=== PATIENT | male | born 1960 | race Caucasian/White ===

== ENCOUNTER 2016-02-23 12:35 | Emergency (ER) | payer SELFPAY ==
[~2016-02-23] VITALS: Ht 185.4 cm; Wt 85.0 kg
[~2016-02-23 12:35] MED LIST: BACT800T5 PO; FLAG500T PO
[2016-02-23 12:39] VITALS: BP 184/96; PULSE 66; RESP 18; TEMP 97.5; O2SAT 98
[2016-02-23] MEDS ORDERED: METR-1 PO ×2 (12:54→13:04)
--- NOTE | 2016-02-23 12:58 | PD ---
HPI Chief Complaint: Abdominal Pain Time Seen by Provider: 12:43 Travel History International Travel<30 days: No Contact w/Intl Traveler<30days: No Traveled to known affect area: No History of Present Illness HPI 55-year-old male with history of diverticulitis here with complaint of left lower quadrant, suprapubic abdominal pain for the last 3 days. States it feels similar to his history of diverticulitis. No nausea vomiting. No bloody stools.no fevers or chills. PFSH Past Medical History Diminished Hearing: No Diverticulitis: Yes Gastrointestinal Disorders: Yes (intermittent abd pain) Immunizations Current: Yes Tetanus Vaccination: > 5 Years Influenza Vaccination: No Social History Alcohol Use: Yes (socially) Tobacco Use: Yes (1ppd) Substance Use: No (denies) Allergies-Medications (Allergen,Severity, Reaction): Coded Allergies: No Known Allergies (Unverified , 02/23/16) Reported Meds & Prescriptions Reported Meds & Active Scripts Active Reported Flagyl (Metronidazole) 500 Mg Tab 500 Mg PO BID Review of Systems Except as stated in HPI: all other systems reviewed are Neg Physical Exam Narrative GENERAL: well-appearing male in no acute distress SKIN: Warm and dry. HEAD: Normocephalic. EYES:No scleral icterus. No injection or drainage. ENT: Mucous membranes pink and moist. NECK: Tsupple CARDIOVASCULAR: Regular rate and rhythm. RESPIRATORY: No accessory muscle use. GASTROINTESTINAL: Abdomen soft, mild suprapubic tenderness to palpation without rebound or guarding, nondistended. RECTAL: no tenderness to palpation of the prostate MUSCULOSKELETAL: normal gait NEUROLOGICAL: Awake and alert. Normal speech. PSYCHIATRIC: Appropriate mood and affect; insight and judgment normal. Data Data Last Documented VS Vital Signs Date Time Temp Pulse Resp B/P Pulse Ox O2 Delivery O2 Flow Rate FiO2 02/23/16 12:39 97.5 66 18 184/96 98 Room Air MDM Medical Decision Making Medical Screen Exam Complete: Yes Emergency Medical Condition: Yes Medical Record Reviewed: Yes Differential Diagnosis 55-year-old male with history of diverticulitis here with 3 days of suprapubic and left lower quadrant abdominal pain. Differential includes diverticulitis, prostatitis, UTI. Abdominal examination benign making peritoneal pathology such as abscess or perforation unlikely. Narrative Course Patient will be treated empirically and discharged home to follow up with outpatient primary care, GI. Diagnosis Primary Impression: Diverticulitis Qualified Code: K57.20 - Diverticulitis of large intestine with perforation and abscess without bleeding Referrals: Deepak Long MD call for appointment [facility] call for appointment [facility] call for appointment Additional Instructions: Finish antibiotics as prescribed. Re-enroll in patient assistance and follow up with outpatient GI for colonoscopy. Med/Other Pt SpecificInfo: Prescription(s) given Scripts Tramadol (Ultram)50 Mg Tab50 Mg PO Q4H PRN (PAIN) #10 TAB Ref 0 Prov:Chrissie Montoya MD 02/23/16 Metronidazole (Flagyl)500 Mg [id number] Mg PO TID 10 Days Ref 0 Prov:Chrissie Montoya MD 02/23/16 Ciprofloxacin 750 Mg [id number] Mg PO BID 10 Days Ref 0 Prov:Chrissie Montoya MD 02/23/16 Disposition: 01 DISCHARGE HOME Condition: Stable Chrissie Montoya MD Feb 23, 2016 12:58
[2016-02-23] MEDS ORDERED: CIPR750T2 PO (13:04)
[2016-02-23] MEDS ORDERED: ULTR50TA5 PO (13:04)
== END 2016-02-23 13:43 | disposition home or self-care (01) ==
LOC: NEPE 12:35
DX: K57.20 Diverticulitis of large intestine with perforation and abscess without bleeding (principal)
CPT/HCPCS: 99283

== ENCOUNTER 2017-07-31 10:32 | Observation (INO) | payer SELFPAY ==
[~2017-07-31] VITALS: Ht 185.4 cm; Wt 82.0 kg
[~2017-07-31 10:32] MED LIST changes: -BACT800T5 PO; +CIPR750T2 PO; -FLAG500T PO; +METR-1 PO; +TRAM50 PO
[2017-07-31 10:36] VITALS: BP 190/93; PULSE 65; RESP 16; TEMP 98.7; O2SAT 100
[2017-07-31] MEDS ORDERED: MORPHINE SULFATE 4 MG/ML INJ IV PUSH ONE (10:45)
[2017-07-31] MEDS ORDERED: ASPIRIN 81 MG CHEW TAB PO ONE (10:45)
[2017-07-31] MEDS ORDERED: SODIUM CHLORIDE 0.9% FLUSH 10 ML FLUSH IVF PRN (10:45)
[2017-07-31 10:51] VITALS: BP 182/92; PULSE 58; RESP 16; O2SAT 99
--- NOTE | 2017-07-31 10:58 | PD ---
HPI . throat pain Chief Complaint: Chest Pain Time Seen by Provider: 10:44 Travel History International Travel<30 days: No Contact w/Intl Traveler<30days: No Traveled to known affect area: No History of Present Illness HPI Patient presents with chief complaint of throat pain. Onset was last night. Comes and goes. He rates the pain at 2/10. Associated symptoms include nausea , dizziness, shortness of breath, shaking and feeling agitated. He has not noted any modifying factors. Specifically, no increased discomfort with activity. Risk factors for coronary artery disease include tobacco abuse. No known history of hypertension. He denies drug abuse. [facility] Past Medical History Diminished Hearing: No Diverticulitis: Yes Gastrointestinal Disorders: Yes (intermittent abd pain) Immunizations Current: Yes Past Surgical History Surgical History: No Previous Surgery Social History Alcohol Use: Yes (socially) Tobacco Use: Yes (1ppd) Substance Use: No (denies) Allergies-Medications (Allergen,Severity, Reaction): Coded Allergies: No Known Allergies (Unverified Adverse Reaction, Unknown, 07/31/17) Reported Meds & Prescriptions Reported Meds & Active Scripts Active No Active Prescriptions or Reported Medications Review of Systems Except as stated in HPI: all other systems reviewed are Neg General / Constitutional: No: Fever, Chills HENT: Positive: Lightheadedness Cardiovascular: Positive: Chest Pain or Discomfort Respiratory: Positive: Shortness of Breath Gastrointestinal: Positive: Nausea Neurologic: Positive: Tremor Psychiatric: Positive: Other (Agitation) Physical Exam Narrative GENERAL: Awake and alert and in no acute distress. SKIN: warm/dry. HEAD: Normocephalic. Atraumatic. EYES: Pupils equal and round. Extraocular movements are intact. ENT: Mucous membranes pink and moist. NECK: Supple. Full range of motion without pain.. CARDIOVASCULAR: Regular rate and rhythm. Heart sounds normal. RESPIRATORY: No accessory muscle use. Clear to auscultation. Breath sounds equal bilaterally. He does have some chest wall tenderness. GASTROINTESTINAL: Abdomen soft. Nontender. Bowel sounds present. Nondistended. MUSCULOSKELETAL: No obvious deformities. Normal muscle tone. NEUROLOGICAL: Awake and alert. No obvious cranial nerve deficits. Motor grossly within normal limits. Normal speech. PSYCHIATRIC: Appropriate mood and affect; insight and judgment normal. Data Data Last Documented VS Vital Signs Date Time Temp Pulse Resp B/P (MAP) Pulse Ox O2 Delivery O2 Flow Rate FiO2 07/31/17 10:51 58 16 182/92 (122) 99 Room Air 07/31/17 10:36 98.7 Orders Orders Electrocardiogram (07/31/17 10:45) Basic Metabolic Panel (Bmp) (07/31/17 10:45) Complete Blood Count With Diff (07/31/17 10:45) Magnesium (Mg) (07/31/17 10:45) Prothrombin Time / Inr (Pt) (07/31/17 10:45) Act Partial Throm Time (Ptt) (07/31/17 10:45) Troponin I (07/31/17 10:45) Ecg Monitoring (07/31/17 10:45) Iv Access Insert/Monitor (07/31/17 10:45) Oximetry (07/31/17 10:45) Aspirin Chew (Aspirin Chew) (07/31/17 10:45) Morphine Inj (Morphine Inj) (07/31/17 10:45) Sodium Chloride 0.9% Flush (Ns Flush) (07/31/17 10:45) Nitroglycerin Sl (Nitrostat Sl) (07/31/17 10:45) Chest, Pa & Lat (07/31/17 10:45) Labs Laboratory Tests Test 07/31/17 10:55 White Blood Count 4.4 TH/MM3 Red Blood Count 5.55 MIL/MM3 Hemoglobin 17.9 GM/DL Hematocrit 52.0 % Mean Corpuscular Volume 93.8 FL Mean Corpuscular Hemoglobin 32.3 PG Mean Corpuscular Hemoglobin Concent 34.4 % Red Cell Distribution Width 13.2 % Platelet Count 208 TH/MM3 Mean Platelet Volume 8.8 FL Neutrophils (%) (Auto) 59.9 % Lymphocytes (%) (Auto) 27.1 % Monocytes (%) (Auto) 8.5 % Eosinophils (%) (Auto) 2.8 % Basophils (%) (Auto) 1.7 % Neutrophils # (Auto) 2.7 TH/MM3 Lymphocytes # (Auto) 1.2 TH/MM3 Monocytes # (Auto) 0.4 TH/MM3 Eosinophils # (Auto) 0.1 TH/MM3 Basophils # (Auto) 0.1 TH/MM3 CBC Comment DIFF FINAL Differential Comment Prothrombin Time 10.6 SEC Prothromb Time International Ratio 1.0 RATIO Activated Partial Thromboplast Time 25.1 SEC Blood Urea Nitrogen 12 MG/DL Creatinine 1.15 MG/DL Random Glucose 119 MG/DL Calcium Level 9.0 MG/DL Magnesium Level 2.4 MG/DL Sodium Level 139 MEQ/L Potassium Level 4.3 MEQ/L Chloride Level 106 MEQ/L Carbon Dioxide Level 27.2 MEQ/L Anion Gap 6 MEQ/L Estimat Glomerular Filtration Rate 66 ML/MIN Troponin I LESS THAN 0.02 NG/ML MDM Medical Decision Making Medical Screen Exam Complete: Yes Emergency Medical Condition: Yes Medical Record Reviewed: Yes (Past medical history of diverticulitis) Interpretation(s) EKG shows a sinus rhythm with no acute ischemic changes Differential Diagnosis Differential diagnosis of chest pain includes but is not limited to musculoskeletal pain, pulmonary embolism, acute coronary syndrome, pneumonia, pleurisy Narrative Course This patient presents complaining with throat discomfort. Cardiac workup is in process. He has been given aspirin and will be given sublingual nitroglycerin. Further evaluation and treatment will be dependent upon the results of his workup as well as his response to treatment. CBC & BMP Diagram 07/31/17 10:55 Calcium Level 9.0, Magnesium Level 2.4 trop < 0.02 Last Impressions Chest X-Ray 07/31/17 1045 Signed Impressions: CONCLUSION: No acute cardiopulmonary abnormality is identified. He will be placed in the chest pain center for further evaluation. Diagnosis Primary Impression: Chest pain Qualified Codes: R07.9 - Chest pain, unspecified Admitting Information Admitting Physician Requests: Observation Scripts No Active Prescriptions or Reported Meds Condition: Stable Shavonne Meek MD Jul 31, 2017 10:58
[2017-07-31 11:14] LABS: AUTOMATED NEUTROPHIL # 2.7 TH/MM3 (1.8-7.7); BASOPHIL # 0.1 TH/MM3 (0-0.2); BASOPHIL % 1.7 % (0.0-2.0); EOSINOPHIL # 0.1 TH/MM3 (0-0.4); EOSINOPHIL % 2.8 % (0.0-4.0); HEMOGLOBIN 17.9 GM/DL (13.0-17.0); LYMPH % 27.1 % (9.0-44.0); LYMPHOCYTE # 1.2 TH/MM3 (1.0-4.8); MEAN CELL VOLUME 93.8 FL (80.0-100.0); MEAN CORPUSCULAR HEMOGLOBIN 32.3 PG (27.0-34.0); MEAN CORPUSCULAR HGB CONC 34.4 % (32.0-36.0); MEAN PLATELET VOLUME 8.8 FL (7.0-11.0); MONO % 8.5 % (0.0-8.0); MONOCYTE # 0.4 TH/MM3 (0-0.9); NEUT % 59.9 % (16.0-70.0); PLATELET COUNT 208 TH/MM3 (150-450); RED BLOOD COUNT 5.55 MIL/MM3 (4.50-5.90); RED CELL DISTRIBUTION WIDTH 13.2 % (11.6-17.2); WHITE BLOOD COUNT 4.4 TH/MM3 (4.0-11.0)
[2017-07-31] MEDS: NITROGLYCERIN 0.4 MG SL 25 TABS/BTL SL SCH ×3 (11:26→12:12)
[2017-07-31 11:29] LABS: PROTHROMBIN TIME - PATIENT 10.6 SEC (9.8-11.6)
[2017-07-31 11:32] VITALS: BP 130/57; PULSE 55; RESP 16; O2SAT 96
[2017-07-31 11:35] LABS: BICARBONATE 27.2 MEQ/L (21.0-32.0); BLOOD UREA NITROGEN 12 MG/DL (7-18); CHLORIDE 106 MEQ/L (98-107); CREATININE 1.15 MG/DL (0.60-1.30); GLOMERULAR FILTRATION RATE 66 ML/MIN (>89); GLUCOSE,RANDOM 119 MG/DL (74-106); MAGNESIUM 2.4 MG/DL (1.5-2.5); SODIUM (NA) 139 MEQ/L (136-145)
[2017-07-31 11:39] LABS: TROPONIN I LESS THAN 0.02 NG/ML (0.02-0.05)
--- NOTE | 2017-07-31 11:44 | RADRPT ---
EXAM DATE: 07/31/2017 11:10 AM EDT AGE/SEX: 56 years / Male INDICATIONS: Chest pain CLINICAL DATA: This is the patient's initial encounter. Patient reports that signs and symptoms have been present for 1 day and indicates a pain score of 5/10. MEDICAL/SURGICAL HISTORY: Hypertension. None. COMPARISON: [facility] – [place], CT ABDOMEN & PELVIS W CONTRAST, 08/31/2014. . FINDINGS: Frontal and lateral views of the chest demonstrate a normal-sized cardiac silhouette. There is no eff usion, consolidation, or pneumothorax. The bones and soft tissues demonstrate no acute abnormality. CONCLUSION: No acute cardiopulmonary abnormality is identified. Electronically signed by: Kun Swift MD 07/31/2017 11:43 AM EDT
[2017-07-31 12:04] VITALS: BP 132/79; PULSE 60; RESP 20; O2SAT 96
[2017-07-31] MEDS ORDERED: NITROGLYCERIN 0.4 MG SL 25 TABS/BTL SL PRN (12:30)
[2017-07-31] MEDS ORDERED: SODIUM CHLORIDE 0.9% FLUSH 10 ML FLUSH IV FLUSH PRN (12:30)
[2017-07-31] MEDS ORDERED: ACETAMINOPHEN 500 MG CPLT PO PRN (12:30)
--- NOTE | 2017-07-31 14:15 | HHI.HP ---
HPI Primary Care Physician No Primary Care Physician Chief Complaint Chest pain History of Present Illness 56-year-old male with history of diverticulitis and current smoker presents emergency room for further evaluation of throat and nonexertional chest pain. Yesterday felt dehydrated and lightheaded, checked his blood pressure after reported to be elevated. While at work today continued to feel dehydrated and lightheaded. Experienced throat tightness and burning. Sternum was mildly "sore " intermittently. Duration hours. Endorses intermittent throat tightness and burning for weeks. Often waking him up in the middle the night. No precipitating or relieving factors. No associated symptoms of nausea, vomiting , dyspnea, or diaphoresis. No recent illness, fever, or chills. Review of Systems General: No fatigue,weakness, fever, chills, recent illness, or change in appetite. HEENT: No MCM[place], no vision changes, no nasal congestion or drainage, no dysphasia CV: As stated above. No current chest pain. RESP: No SOB, cough, wheeze GI: No nausea, vomiting, bowel changes, diarrhea, constipation, pain, distention , melena, or blood in the stool. No history of GERD. : No dysuria, urgency, frequency MS: No discomfort, injury or change in ROM NEURO: No dizziness, difficulty with balance, LOC, motor/sensory deficits PSYCH: No anxiety, depression, or suicidal ideation SKIN: No rashes, no concerning lesions Past Family Social History Allergies: Coded Allergies: No Known Allergies (Unverified Allergy, Unknown, 07/31/17) Past Medical History Diverticulitis Past Surgical History None Reported Medications Reported Meds & Active Scripts Active No Active Prescriptions or Reported Medications Active Ordered Medications Current Medications Medications (Trade) Dose Ordered Sig/Vernell Route Start Time Stop Time Status Last Admin (NS Flush) 2 ml UNSCH PRN IVF 07/31/17 10:45 07/31/17 11:27 (NS Flush) 2 ml UNSCH PRN IV FLUSH 07/31/17 12:30 (NS Flush) 2 ml BID IV FLUSH 07/31/17 21:00 (Tylenol) 500 mg Q4H PRN PO 07/31/17 12:30 (Nitrostat Sl) 0.4 mg Q5M PRN SL 07/31/17 12:30 (Aspirin) 325 mg DAILY PO 08/01/17 09:00 Family History Noncontributory for early onset cardiovascular disease Social History No known hypertension, hyperlipidemia or diabetes. Current 1 pack/day smoker. Drinks 6 beers/daily. 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 Past cardiac testing None Physical Exam Vital Signs Vital Signs Date Time Temp Pulse Resp B/P (MAP) Pulse Ox O2 Delivery O2 Flow Rate FiO2 07/31/17 12:04 60 20 132/79 (96) 96 Room Air 07/31/17 11:32 55 16 130/57 (81) 96 Room Air 07/31/17 10:51 58 16 182/92 (122) 99 Room Air 07/31/17 10:36 98.7 65 16 190/93 (125) 100 Physical Exam GENERAL: Alert WN, WD, NAD, pleasant, male HEAD: NC, AT CV: RRR, without murmur, rub, or gallop, no JVD, S1-S2 no S3-S4. RESP: Clear lungs throughout bilateral, no crackles, wheeze, rhonchi, symmetrical chest rise, nonlabored, able to speak in full sentences ABD: Soft, NT, ND, no masses, positive bowel tones EXT: Pulses +2x4, no dependent edema MS: Normal tone x4 extremities, nontender, no obvious deformities, full range of motion NEURO: CN II through CN XII grossly intact, motor strength 5/5 PSYCH: A+O x3, pleasant affect, appropriate speech, mood, insight and judgment SKIN: Normal turgor, normal texture, no lesions, no rashes, brisk cap refill, even hair distribution Laboratory Laboratory Tests Test 07/31/17 10:55 07/31/17 13:47 White Blood Count 4.4 Red Blood Count 5.55 Hemoglobin 17.9 Hematocrit 52.0 Mean Corpuscular Volume 93.8 Mean Corpuscular Hemoglobin 32.3 Mean Corpuscular Hemoglobin Concent 34.4 Red Cell Distribution Width 13.2 Platelet Count 208 Mean Platelet Volume 8.8 Neutrophils (%) (Auto) 59.9 Lymphocytes (%) (Auto) 27.1 Monocytes (%) (Auto) 8.5 Eosinophils (%) (Auto) 2.8 Basophils (%) (Auto) 1.7 Neutrophils # (Auto) 2.7 Lymphocytes # (Auto) 1.2 Monocytes # (Auto) 0.4 Eosinophils # (Auto) 0.1 Basophils # (Auto) 0.1 CBC Comment DIFF FINAL Differential Comment Prothrombin Time 10.6 Prothromb Time International Ratio 1.0 Activated Partial Thromboplast Time 25.1 Blood Urea Nitrogen 12 Creatinine 1.15 Random Glucose 119 Calcium Level 9.0 Magnesium Level 2.4 Sodium Level 139 Potassium Level 4.3 Chloride Level 106 Carbon Dioxide Level 27.2 Anion Gap 6 Estimat Glomerular Filtration Rate 66 Troponin I LESS THAN 0.02 Result Diagram: 07/31/17 1055 07/31/17 1055 Imaging Last 48 hours Impressions Chest X-Ray 07/31/17 1045 Signed Impressions: CONCLUSION: No acute cardiopulmonary abnormality is identified. Course EKG Normal sinus bradycardia, early repolarization Caprini VTE Risk Assessment Caprini VTE Risk Assessment: No/Low Risk (score <= 1) Caprini Risk Assessment Model Point Value = 1 Point Value = 2 Point Value = 3 Point Value = 5 Age 41-60 Minor surgery BMI > 25 kg/m2 Swollen legs Varicose veins or History of unexplained or recurrent spontaneous Oral contraceptives or hormone replacement Sepsis (< 1 month) Serious lung disease, including pneumonia (< 1 month) Abnormal pulmonary function Acute myocardial infarction Congestive heart failure (< 1 month) History of inflammatory bowel disease Medical patient at bed rest Age 61-74 Arthroscopic surgery Major open surgery (> 45 min) Laparoscopic surgery (> 45 min) Malignancy Confined to bed (> 72 hours) Immobilizing plaster cast Central venous access Age >= 75 History of VTE Family history of VTE Factor V Leiden Prothrombin [id number] Lupus anticoagulant Anticardiolipin antibodies Elevated serum homocysteine Heparin-induced thrombocytopenia Other congenital or acquired thrombophilia Stroke (< 1 month) Elective arthroplasty Hip, pelvis, or leg fracture Acute spinal cord injury (< 1 month) Prophylaxis Regimen Total Risk Factor Score Risk Level Prophylaxis Regimen 0-1 Low Early ambulation 2 Moderate Order ONE of the following: *Sequential Compression Device (SCD) *Heparin 5000 units SQ BID 3-4 Higher Order ONE of the following medications: *Heparin 5000 units SQ TID *Enoxaparin/Lovenox 40 mg SQ daily (WT < 150 kg, CrCl > 30 mL/min) *Enoxaparin/Lovenox 30 mg SQ daily (WT < 150 kg, CrCl > 10-29 mL/min) *Enoxaparin/Lovenox 30 mg SQ BID (WT < 150 kg, CrCl > 30 mL/min) AND/OR *Sequential Compression Device (SCD) 5 or more Highest Order ONE of the following medications: *Heparin 5000 units SQ TID (Preferred with Epidurals) *Enoxaparin/Lovenox 40 mg SQ daily (WT < 150 kg, CrCl > 30 mL/min) *Enoxaparin/Lovenox 30 mg SQ daily (WT < 150 kg, CrCl > 10-29 mL/min) *Enoxaparin/Lovenox 30 mg SQ BID (WT < 150 kg, CrCl > 30 mL/min) AND *Sequential Compression Device (SCD) Assessment and Plan Assessment and Plan Admitted to chest pain center. Seen and evaluated by Dr. Tayo Ghotra. ACS ruled out with 2 sets of EKGs and cardiac enzymes. Proceed with exercise cardiac stress testing today. If unremarkable, plans to be discharged home with follow-up with PCP. Strongly encouraged to establish with primary care provider as he will require further evaluation upon discharge regarding intermittent throat pain. No acute physical findings, possible GI component. Stressed importance of tobacco cessation and instructed to quit smoking. Janice Arthur Jul 31, 2017 14:15
[2017-07-31 14:40] LABS: TROPONIN I LESS THAN 0.02 NG/ML (0.02-0.05)
[2017-07-31 14:49] VITALS: BP 146/86; PULSE 51; RESP 14; TEMP 98.9; O2SAT 99
[2017-07-31] MEDS ORDERED: LISI10TA3 PO (18:41)
--- NOTE | 2017-07-31 18:42 | HHI.DCPOC ---
Discharge Care Plan Diagnosis: (1) Atypical chest pain (2) Hypertension (3) Tobacco abuse Goals to Promote Your Health * To prevent worsening of your condition and complications * To maintain your health at the optimal level Directions to Meet Your Goals Take your medications as prescribed Follow your dietary instruction Follow activity as directed Keep your appointments as scheduled Take your immunizations and boosters as scheduled If your symptoms worsen call your PCP, if no PCP go to Urgent Care Center or Emergency Room Smoking is Dangerous to Your Health. Avoid second hand smoke Call the 24-hour hour crisis hotline for domestic abuse at Janice Arthur Jul 31, 2017 18:42
[2017-07-31] MEDS ORDERED: SODIUM CHLORIDE 0.9% FLUSH 10 ML FLUSH IV FLUSH SCH (21:00)
--- NOTE | 2017-08-01 08:10 | EKG ---
Date Performed: 07/31/2017 Time Performed: 13:44:07 PTAGE: 56 years EKG: SINUS BRADYCARDIA BORDERLINE ECG PREVIOUS TRACING : 07/31/2017 10.55 Since previous tracing, no significant change noted DOCTOR: Tayo Ghotra Interpretating Date/Time 08/01/2017 08:07:55
--- NOTE | 2017-08-01 08:11 | EKG ---
Date Performed: 07/31/2017 Time Performed: 10:55:31 PTAGE: 56 years EKG: SINUS BRADYCARDIA BORDERLINE ECG NO PREVIOUS TRACING DOCTOR: Tayo Ghotra Interpretating Date/Time 08/01/2017 08:08:41
--- NOTE | 2017-08-01 08:16 | TR ---
Date Performed: 07/31/2017 Time Performed: 17:53:28 DOCTOR: Tayo Ghotra DRUG LIST: CLINICAL HISTORY: REASON FOR TEST: CHEST PAIN REASON FOR ENDING: OBSERVATION: CONCLUSION: Ricardo protocol completed. Stopped sec to exceeding target heart rate and leg fatigue . Maximum IQ=655 Target HR Bczyrziy=061.0% Total Exercise Time=5:01 Maximum ED=924/90. No reprod ches t discomfort. At peak complaints of throat tightness. Good exercise tolerance. No ectopy. Normal exer cise tolerance. Artifact during exam despite multiple attempts. Recovery quick and unremarkable. No s t t segment changes at peak. COMMENTS: Patient exercised using the Ricardo protocol. No electrocardiographic changes were seen to suggest ischemia. Hemodynamic response to exercise was normal. No significant arrhythmia was prese nt.
[2017-08-01] MEDS ORDERED: ASPIRIN 325 MG TAB PO SCH (09:00)
== END 2017-07-31 19:54 | disposition home or self-care (01) ==
LOC: NEPE 10:32 → NEDA 11:52 → NEPHCDU 14:24
PROVIDERS: ADMIT Internal Medicine Cardiovascular Disease; ATTEND Internal Medicine Cardiovascular Disease
DX: R07.89 Other chest pain (principal); I10 Essential (primary) hypertension; R00.1 Bradycardia, unspecified; F17.200 Nicotine dependence, unspecified, uncomplicated
CPT/HCPCS: 71046; 80048; 82550; 82552; 83735; 84484; 85025; 85610; 85730; 93005; 93017; 96374; 99285; G0378; J2270